=== PATIENT | female | born 1955 | race Caucasian/White ===

== ENCOUNTER 2020-07-17 15:44 | Inpatient (IN) | payer BC, SELFPAY ==
--- NOTE | ~2020-07-17 | MR_ITS ---
EXAMINATION: MR MRCP wo/w con/w 3D wo ind DATE: 07/18/2020 16:07 INDICATION: Chronic pancreatitis. Abdominal pain. TECHNIQUE: Magnetic resonance imaging (MRI) of the abdomen was performed without and with 12 mL Multi Lokesh intravenous contrast. Sequences included coronal T2-weighted FS FSE, coronal T2-weighted FSE, a xial T1-weighted LAVA, coronal FS FIESTA, axial dual-echo T1-weighted SPGR, coronal lava-FLEX, sagitt al T2-weighted FSE, axial T2-weighted FSE, and axial DWI. Thick-slab T2-weighted FSE images were obta ined for magnetic resonance cholangiopancreatography (MRCP). Maximum intensity projection 3-D reconst ructions of the volumetric data were created by the technologist. Postcontrast sequences included cor onal LAVA-flex and time course of axial T1-weighted LAVA. COMPARISON: CT abdomen and pelvis the 07/17/2020 FINDINGS: ABDOMEN MRI: The liver is normal. The spleen is absent. The gallbladder is absent. The tail of the pa ncreas is mildly enlarged, consistent with chronic pancreatitis. The adrenal glands are normal. There are cysts in the kidneys measuring up to 14 mm on the right. There are no dilated loops of bowel. Th ere is a supraumbilical ventral hernia containing nonobstructed small bowel. There are no pathologica lly enlarged lymph nodes. There is no free intraperitoneal fluid. ABDOMEN MRCP: The common duct is normal and measures 6 mm. No choledocholithiasis. The pancreatic dannie t is normal in caliber. IMPRESSION: 1. Mild enlargement of the tail of the pancreas, consistent with chronic pancreatitis. 2. Supraumbilical ventral hernia containing nonobstructed small bowel. Reviewed, dictated and finalized at location A. IMPRESSION: 1. Mild enlargement of the tail of the pancreas, consistent with chronic pancre atitis. 2. Supraumbilical ventral hernia containing nonobstructed small bowel.
--- NOTE | ~2020-07-17 | CT_ITS ---
EXAMINATION: CT abdomen pelvis wo con DATE: 07/17/2020 18:34 INDICATION: Left flank pain. TECHNIQUE: Computed tomography (CT) of the abdomen and pelvis was performed without intravenous contr ast. Automated exposure control and iterative reconstruction technique were employed. The dose-length product was 179.87 mGy-cm. COMPARISON: None. FINDINGS: The visualized portions of the lung bases demonstrate mild atelectasis. Calcified left lung nodules are consistent with old granulomatous disease. No pleural effusion. The heart size is normal . No pericardial effusion. The liver is normal. The spleen is absent. There are changes of cholecyste ctomy. There is fat stranding around the pancreas. The adrenal glands are normal.. There is mild atro phy of the kidneys. There are 1 mm and 4 mm stones in right kidney. There is a 1.5 cm cyst in right k idney. There is a 1 mm stone in left kidney. The bladder is distended. There are no dilated loops of bowel. The appendix is normal. There is a supraumbilical ventral hernia containing nonobstructed smal l bowel. There are no pathologically enlarged lymph nodes. There is no free intraperitoneal fluid. Th ere is severe thoracic and lumbar spondylosis. IMPRESSION: 1. Supraumbilical ventral hernia containing nonobstructed small bowel. 2. Bilateral nonobstructing kidney stones. 3. Fat stranding around the pancreas suspicious for acute or chronic pancreatitis. Correlate with lip ase. Reviewed, dictated and finalized at location A. IMPRESSION: 1. Supraumbilical ventral hernia containing nonobstructed small bowel. 2. Bilateral nonobstructing kidney stones. 3. Fat stranding around the pancreas suspicious for acute or chronic pancreatit is. Correlate with lipase.
[2020-07-17 16:02] VITALS: BP 147/83; PULSE 80; RESP 16; TEMP 36.1; O2SAT 97
[2020-07-17 16:18] LABS: Basophils Absolute Auto 0.1 K/mm3 (0.0-0.1); Basophils Percent Auto 0.8 % (0.2-1.2); Eosinophils Absolute Auto 0.2 K/mm3 (0-0.3); Eosinophils Percent Auto 2.5 % (0-4.4); Hematocrit 36.8 % (37.0-47.0); Hemoglobin 12.2 g/dL (12.0-15.0); Immature Granulocyte Absolute 0.02 K/mm3 (0.00-0.031); Immature Granulocyte Percent A 0.3 % (0-0.5); Lymphocytes Absolute Auto 1.95 K/mm3 (0.9-3.2); Lymphocytes Percent Auto 26.6 % (18.3-44.2); Mean Corpuscular HGB Conc 33.2 g/dl (32-36); Mean Corpuscular Hemoglobin 32.5 pg (26-34); Mean Corpuscular Volume 98.1 fl (80-100); Mean Platelet Volume 10.5 fl (7.4-10.4); Monocytes Absolute Auto 1.1 K/mm3 (0.1-0.6); Monocytes Percent Auto 14.6 % (2.6-8.5); Neutrophils Absolute Auto 4.1 K/mm3 (1.3-6.7); Neutrophils Percent Auto 55.2 % (45.5-73.1); Platelet Count Result 301 k/mm3 (150-375); Red Blood Count 3.75 M/mm3 (4.2-5.4); Red Cell Distribution Width 15.9 % (11.5-14.5); White Blood Count 7.3 K/mm3 (4.5-10.0)
[2020-07-17 16:20] LABS: Add Urine Microscopic? NO; Appearance Urine Clear (Clear); Bilirubin Urine Negative (Negative); Blood Urine Negative (Negative); Color Urine Straw (Yellow); Glucose Urine UA Negative (Negative); Ketones Urine Negative (Negative); Leukocyte Esterase Ur Negative LEU/UL (Negative); Nitrate Urine Negative (Negative); Protein Urine Negative (Negative); Specific Grav Ur 1.008 (1.001-1.035); Urobilinogen Urine Negative mg/dL (<2.0)
[2020-07-17 16:30] LABS: Anion Gap 5 mmol/L (8-16); Blood Urea Nitrogen 15 mg/dL (7-17); Carbon Dioxide 26 mmol/L (22-30); Chloride 105 mmol/L (98-107); Estimated CRCL calculation 39 ml/min; Estimated Glomerular Filt Rate 56; Glucose 90 mg/dL (65-105); Potassium 4.2 mmol/L (3.4-5.0); Sodium 136 mmol/L (137-145)
[2020-07-17 16:36] LABS: Platelet Estimate Adequate (Adequate)
[2020-07-17 16:37] LABS: Stomatocytes 2+ (NORMAL); Tear Drop Cells 1+ (NORMAL)
--- NOTE | 2020-07-17 18:19 | ED.BACK ---
HPI - Back Pain/Injury General Chief Complaint: Back Pain/Injury Stated Complaint: DIFF WITH URINATION L FLANK PAIN Time Seen by Provider: 07/17/20 17:59 Source: patient Mode of arrival: ambulatory Limitations: no limitations History of Present Illness HPI Narrative: This is a 65-year-old female that presents to the emergency department for left flank pain since last night. Associated with dysuria and hematuria. Also reports left upper/mid abdominal pain. Denies fever, or vomiting. Related Data Allergies Allergy/AdvReac Type Severity Reaction Status Date / Time acetaminophen [From Liscomb] Allergy Nausea and Verified 07/17/20 18:01 Vomiting banana Allergy Rash Verified 07/17/20 18:01 bee venom protein (honey bee) Allergy Anaphylaxis Verified 07/17/20 18:01 cat dander Allergy Rash Verified 07/17/20 18:01 cefdinir Allergy Rash Verified 07/17/20 18:01 codeine Allergy Anaphylaxis Verified 07/17/20 18:01 dog dander Allergy Rash Verified 07/17/20 18:01 gluten Allergy Diarrhea Verified 07/17/20 18:01 hydrocodone Allergy Nausea Verified 07/17/20 18:01 hydromorphone [From Dilaudid] Allergy Difficulty Verified 07/17/20 18:01 Breathing Iodine and Iodide Containing Allergy Hives Verified 07/17/20 18:01 Produc lactose Allergy Diarrhea Verified 07/17/20 18:01 Latex, Natural Rubber Allergy Hives Verified 07/17/20 18:01 levofloxacin Allergy Rash Verified 07/17/20 18:01 pineapple Allergy Rash Verified 07/17/20 18:01 shellfish derived Allergy Anaphylaxis Verified 07/17/20 18:01 strawberry Allergy Rash Verified 07/17/20 18:01 Sulfa (Sulfonamide Allergy Hives Verified 07/17/20 18:01 Antibiotics) sulfanilamide Allergy Rash Verified 07/17/20 18:01 aspirin AdvReac Other Verified 07/17/20 18:01 Review of Systems Review of Systems: Narrative: CONSTITUTIONAL: Denies fever GASTROINTESTINAL: Reports abdominal pain. Denies nausea, vomiting GENITOURINARY: Reports dysuria and hematuria. All systems reviewed & are unremarkable except as noted in HPI and below PMFSH Past Medical History Medical History (Updated 07/17/20 @ 21:19 by Tierra Schultz PA-C) History of asthma History of gastroesophageal reflux (GERD) History of migraine headaches Exam Narrative: Exam Narrative: GENERAL: Well-appearing, well-nourished, and in mild acute distress due to pain. HEAD: Normocephalic, atraumatic. EYES: EOMI. CHEST: Clear to auscultation. No respiratory distress. No wheezes rales or rhonchi HEART: Regular rate and rhythm. No murmur heard. Normal peripheral pulses. ABDOMEN: Soft, nondistended, normal active bowel sounds. Tender to palpation about the left side mid/upper abdomen, without guarding. Left sided CVA tenderness EXTREMITIES: Normal range of motion. No edema. SKIN: Warm, dry, no rash. NEURO: No focal deficits. Alert and oriented x3. PSYCH: Normal mood and affect Course Consultations Consultation #1: Spoke with hospitalist about patient and work-up who accepts admission Date: 07/17/20 Time: 21:22 Vital Signs Vital signs: Vital Signs Temperature 97 F L 07/17/20 16:02 Pulse Rate 80 07/17/20 16:02 Respiratory Rate 16 07/17/20 16:02 Blood Pressure 147/83 H 07/17/20 16:02 Pulse Oximetry 97 07/17/20 16:02 Temperature 97 F L 07/17/20 16:02 Pulse Rate 72 07/17/20 19:03 Respiratory Rate 16 07/17/20 19:03 Blood Pressure 148/88 H 07/17/20 19:03 Pulse Oximetry 98 07/17/20 19:03 MDM - Back Pain/Injury MDM Narrative Medical decision making narrative: This is a 65 year old female that presents to the ER for back pain and abdominal pain. She is afebrile and nontoxic-appearing. CBC is without leukocytosis. Metabolic panel significant for mild transaminitis. Lipase is normal. UA is normal. CT scan of the abdomen and pelvis shows a ventral hernia containing nonobstructed small bowel. Shows nonobstructing kidney stones. Also shows fat stranding around the pancreas suspicious for acute or ch
[2020-07-17] MEDS: MORPHINE SULFATE (*CRX) 4 MG/ML INJ IV PUSH ×2 (18:26→21:34)
[2020-07-17] MEDS: ONDANSETRON INJ 4 MG/2 ML VIAL IV PUSH (18:27)
[2020-07-17] MEDS: SODIUM CHLORIDE 0.9% IV 1,000 ML 999 ML IV CONT ×2 (18:28→21:34)
[2020-07-17 19:03] VITALS: BP 148/88; PULSE 72; RESP 16; O2SAT 98
[2020-07-17 19:14] LABS: Alanine Aminotransferase 39 U/L (4-35); Albumin Level 4.1 g/dL (3.5-5.1); Alkaline Phosphatase 116 U/L (38-126); Aspartate Amino Transferase 56 U/L (14-36); Bilirubin,Total 0.5 mg/dL (0.2-1.3); Lipase 96 U/L (23-300)
[2020-07-17] MEDS: diphenhydrAMINE HCl INJ 50 MG/ML VIAL 25 MG IV PUSH (19:14)
[2020-07-17] MEDS: FAMOTIDINE 20 MG/2 ML VIAL IV PUSH (19:14)
[2020-07-17 22:35] VITALS: BP 149/77; PULSE 78; RESP 18; TEMP 36.2; O2SAT 97; BMI 25.4
[2020-07-17] MEDS: SODIUM CHLORIDE 0.9% IV 1,000 ML 125 ML IV CONT (22:48)
[2020-07-17] MEDS: MORPHINE SULFATE (*CRX) 2 MG/ML INJ IV PUSH (23:27)
--- NOTE | 2020-07-17 23:35 | ADMGEN ---
This patient, Razia Trinh, was admitted to [facility] Surg Room 312-01. Patient/family oriented to hospital policies and general routines including ID bracelet, bed and alarms, visiting hours, pain management, procedures, bathroom and other care routines, personal items, smoking policy, room service/diet, and visiting hours. Information on how to activate the Rapid Response Team has been discussed. Patient/Family are encouraged to report perceived risks to care and to ask questions if they do not understand what they are told or what they should do.
--- NOTE | 2020-07-17 23:40 | PM.IMHP ---
H&P: HPI History of Present Illness Date/Time: 07/17/20 23:40 this is a 65-year-old female patient has a history of chronic pancreatitis. She has also had kidney stones in the past and had lithotripsy. The patient has multiple drug allergies. Patient's urine was a clear. CT the abdomen pelvis was read as supraumbilical ventral hernia containing nonobstructive small bowel. Bilateral nonobstructing kidney stones. Fat stranding around the pancreas suspicious for acute or chronic pancreatitis. Correlate with lipase. The patient was medicated with morphine in the emergency room. The patient was given Zofran. Patient is being admitted to observation status on the date of service of 07/18/2019 Chief Complaint: Abdominal pain Review of Systems Review of Systems: All systems reviewed & are unremarkable except as noted in HPI and below Constitutional: Constitutional: Reports as per HPI and Reports no additional constitutional complaints Eyes: Eyes: Reports as per HPI and Reports no additional eye complaints ENT: Reports system reviewed and no additional complaints, except as documented and Reports Normal hearing present Cardiovascular: Cardiovascular: Reports no additional cardiovascular complaints Respiratory: Respiratory: Reports no additional respiratory complaints and Reports no additional respiratory complaints Gastrointestinal: Gastrointestinal: Reports as per HPI and Reports no additional gastrointestinal complaints Musculoskeletal: Musculoskeletal: Reports no additional musculoskeletal complaints Integumentary/Breasts: Skin/Breast: Reports system reviewed and no additional complaints, except as docu and Reports as per HPI Neurologic: Reports system reviewed and no additional complaints, except as documented, Reports as per HPI and Reports Normal hearing present Psychiatric: Psychiatric: Reports no additional psychiatric complaints and Reports as per HPI Endocrine: Endocrine: Reports no additional endocrine complaints Hematologic/Lymphatic: Hematologic/Lymphatic: Reports no additional hematologic/lymphatic complaints Allergic/Immunologic: Allergic/Immunologic: Reports no additional allergic/immunologic complaints [facility] [place] Past Medical History Medical History (Updated 07/17/20 @ 23:55 by Mary Aparicio NP) Anxiety History of asthma History of gastroesophageal reflux (GERD) History of migraine headaches Kidney stone Neuropathy Surgical History Surgical History (Updated 07/17/20 @ 23:55 by Mary Aparicio NP) H/O hysterectomy with oophorectomy H/O splenectomy History of bladder surgery History of ERCP Hx of elbow surgery Hx of lithotripsy Total knee replacement status Bilaterally Family History Family History Mother Diabetes mellitus Cancer Hypertension Colon cancer Ulcerative colitis Migraines Cerebrovascular accident Father Diabetes mellitus Hypertension Sibling Diabetes mellitus Hypertension Sibling Diabetes mellitus Hypertension Lung disease Social History Social History (Updated 07/17/20 @ 23:57 by Mary Aparicio NP) Social History: The patient is and her is in a wheelchair. 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 The patient has full code. 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 She denies any alcohol, marijuana or illicit drugs. She states she is a lifelong nonsmoker Smoking status: Never smoker Second hand tobacco smoke exposure: Yes Alcohol intake: never Substance use: never Substance use type: does not use Spiritual care concerns: No Meds Home Medications and Allergies Home Medications Medication Instructions Recorded Confirmed Type alcaftadine 1 drp EACH EYE QID PRN 07/17/20 07/17/20 History beclomethasone dipropionate [Qvar 2 inh INHALATION BID 07/17/20 07/17/20 History RediHaler] biot
[2020-07-18] MEDS: diphenhydrAMINE HCl INJ 50 MG/ML VIAL 25 MG IV PUSH (00:45)
[2020-07-18] MEDS: MORPHINE SULFATE (*CRX) 2 MG/ML INJ IV PUSH ×3 (04:46→20:45)
[2020-07-18 05:39] VITALS: BP 134/67; PULSE 77; RESP 16; TEMP 36.5; O2SAT 93
[2020-07-18 05:47] LABS: Basophils Absolute Auto 0.1 K/mm3 (0.0-0.1); Basophils Percent Auto 0.9 % (0.2-1.2); Eosinophils Absolute Auto 0.3 K/mm3 (0-0.3); Eosinophils Percent Auto 4.1 % (0-4.4); Hematocrit 31.5 % (37.0-47.0); Hemoglobin 10.3 g/dL (12.0-15.0); Immature Granulocyte Absolute 0.01 K/mm3 (0.00-0.031); Immature Granulocyte Percent A 0.1 % (0-0.5); Lymphocytes Absolute Auto 2.72 K/mm3 (0.9-3.2); Lymphocytes Percent Auto 34.6 % (18.3-44.2); Mean Corpuscular HGB Conc 32.7 g/dl (32-36); Mean Corpuscular Hemoglobin 31.9 pg (26-34); Mean Corpuscular Volume 97.5 fl (80-100); Mean Platelet Volume 10.6 fl (7.4-10.4); Monocytes Absolute Auto 1.4 K/mm3 (0.1-0.6); Monocytes Percent Auto 18.1 % (2.6-8.5); Neutrophils Absolute Auto 3.3 K/mm3 (1.3-6.7); Neutrophils Percent Auto 42.2 % (45.5-73.1); Platelet Count Result 288 k/mm3 (150-375); Red Blood Count 3.23 M/mm3 (4.2-5.4); Red Cell Distribution Width 15.9 % (11.5-14.5); White Blood Count 7.9 K/mm3 (4.5-10.0)
[2020-07-18 06:01] LABS: Lactic Acid Reflex 0.6 mmol/L (0.7-2.1)
[2020-07-18 06:05] LABS: Alanine Aminotransferase 29 U/L (4-35); Albumin Level 3.4 g/dL (3.5-5.1); Alkaline Phosphatase 88 U/L (38-126); Anion Gap 2 mmol/L (8-16); Aspartate Amino Transferase 36 U/L (14-36); Bilirubin,Total 0.5 mg/dL (0.2-1.3); Blood Urea Nitrogen 12 mg/dL (7-17); Calcium 8.2 mg/dL (8.4-10.2); Carbon Dioxide 28 mmol/L (22-30); Chloride 110 mmol/L (98-107); Estimated CRCL calculation 43 ml/min; Estimated Glomerular Filt Rate > 60; Glucose 74 mg/dL (65-105); Lactate Dehydrogenase 489 U/L (313-618); Lipase 71 U/L (23-300); Magnesium 1.8 mg/dL (1.6-2.3); Sodium 140 mmol/L (137-145)
[2020-07-18 06:22] LABS: Potassium 4.1 mmol/L (3.4-5.0)
[2020-07-18] MEDS: SODIUM CHLORIDE 0.9% IV 1,000 ML 125 ML IV CONT ×2 (07:03→16:56)
[2020-07-18] MEDS: TIMOLOL MALEATE 0.25% OP SOLN 5 ML BOTTLE 1 DROP LEFT EYE (07:54)
[2020-07-18] MEDS: BRIMONIDINE TARTRATE 0.1% 5 ML OPHTH DROPS 1 DROP EACH EYE (07:54)
[2020-07-18] MEDS: LOTEPREDNOL ETABONATE 0.5% OPH 5 ML BOTTLE 1 DROP EACH EYE ×2 (07:55→16:59)
--- NOTE | 2020-07-18 08:52 | WPDURCON ---
Assessment and Plan Assessment and plan (1) Kidney stone: Code(s): N20.0 - Calculus of kidney Status: Chronic Assessment and Plan: Bilateral non obstructive, no contributing to flank/abdominal pain. UA is normal as well, no hematuria present. No further evaluation needed at this time, will follow stones yearly with imaging. (2) Acute on chronic pancreatitis: Code(s): K85.90 - Acute pancreatitis without necrosis or infection, unspecified; K86.1 - Other chronic pancreatitis Status: Acute Urology Consult Note HPI Date Seen: 07/18/20 Requesting Physician: Autumn Goldstein PA-C Primary Care Provider: Braydon Mcneil, MD Consult Narrative Narrative: Razia Trinh is a 65 year old female who is known to our practice and presented to the office yesterday for an appt. 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 She has a history of kidney stones and pancreatitis. She felt that she was passing a kidney stone as the symptoms were similar. She initially report dysuria and hematuria, however he UA in the office was normal. She was crying and reporting pain 15/10 in the office, therefore we sent her to the ER for immediate evaluation. In the ER she was found to have a stable WBC of 7.9, creatinine of 0.90, negative UA, but CT scan showing fat stranding around her pancreas as well as bilateral non obstructive stones. Stones measure 1mm in the left kidney and 1mm and 4mm in the right kidney. She was febrile and vitals were stable. She was diagnosed with pancreatitis and was admitted for pain control and observation of symptoms. She was made NPO. She states her symptoms are better with Morphine but the pain quickly returns after 1-2 hours of Morphine being given. Review of Systems Cardiovascular: Cardiovascular: Denies chest pain Respiratory: Respiratory: Reports no additional respiratory complaints Gastrointestinal: Gastrointestinal: Reports abdominal pain, Reports nausea and Denies vomiting Genitourinary: Genitourinary: Reports hematuria, Reports dysuria, Denies pelvic pain, Denies flank pain, Denies urinary incontinence, Denies urinary hesitancy and Denies urinary urgency [facility] Past Medical History Medical History Anxiety History of asthma History of gastroesophageal reflux (GERD) History of migraine headaches Kidney stone Neuropathy Surgical History Surgical History H/O hysterectomy with oophorectomy H/O splenectomy History of bladder surgery History of ERCP Hx of elbow surgery Hx of lithotripsy Total knee replacement status Bilaterally Family History Family History Mother Diabetes mellitus Cancer Hypertension Colon cancer Ulcerative colitis Migraines Cerebrovascular accident Father Diabetes mellitus Hypertension Sibling Diabetes mellitus Hypertension Sibling Diabetes mellitus Hypertension Lung disease Social History Social History Social History: The patient is and her is in a wheelchair. 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 The patient has full code. 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 She denies any alcohol, marijuana or illicit drugs. She states she is a lifelong nonsmoker Smoking status: Never smoker Second hand tobacco smoke exposure: Yes Alcohol intake: never Substance use: never Substance use type: does not use Spiritual care concerns: No Meds Home Medications and Allergies Home Medications Medication Instructions Recorded Confirmed Type alcaftadine 1 drp EACH EYE QID PRN 07/17/20 07/17/20 History beclomethasone dipropionate [Qvar 2 inh INHALATION BID 07/17/20
--- NOTE | 2020-07-18 12:28 | PM.IMPN ---
Progress Note: A&P Assessment and Plan (1) Acute on chronic pancreatitis: Code(s): K85.90 - Acute pancreatitis without necrosis or infection, unspecified; K86.1 - Other chronic pancreatitis Status: Acute Assessment and Plan: Pt has a long hx of idiopathic chronic pancreatitis in which she has seen multiple doctors at [facility] and has had part of her pancreas and spleen removed -she said this pain is similar to her pain she had in 2019 when she continued to have chronic pancreatitis -she had an MRCP a few weeks ago although she insists that this pain just started on Friday -for now, will continue NPO and obtain records -since the pain is new, will order MRCP -she does not drink alcohol nor does she have a gallbladder (2) Kidney stone: Code(s): N20.0 - Calculus of kidney Status: Chronic Assessment and Plan: Kidney stones are nonobstructing, follow-up with urology in the office. She has a 1.5 cyst on her right kidney that will need to be followed as well. (3) Anxiety: Code(s): F41.9 - Anxiety disorder, unspecified Status: Chronic Assessment and Plan: Continue PRN anxiety (4) Neuropathy: Code(s): G62.9 - Polyneuropathy, unspecified Status: Chronic Assessment and Plan: Chronic (5) Rheumatoid arthritis: Code(s): M06.9 - Rheumatoid arthritis, unspecified Status: Acute Assessment and Plan: Chronic, no acute symptoms -Pt typically takes MTX on wednesdays, continue per usual outpt since there is no signs of infx -Continue golimumab (next dose July 27) -Continue hydroxycloroquine orally BID Time Spent With Patient Time with patient: 25 - 35 minutes Subjective Date/time seen: 07/18/20 12:28 Interval history: Pt is a 64-year-old female here for abdominal pain. Patient states that this is really acute on chronic abdominal pain. She says a few years ago she had chronic pancreatitis and that part of her pancreas and spleen removed. Since then she has been doing relatively okay but since Friday she has been having pain consistent with the pain she previously had. She has had nausea and vomiting but no diarrhea. She had spaghetti the night her pain started. She had a MRCP a couple weeks ago and she sees Dr. Guillen at [facility]. No CP, SOB fevers or chills. She does not drink alcohol and has had her gallbladder removed. Review of Systems Review of Systems: All systems reviewed & are unremarkable except as noted in HPI and below Exam Narrative: Exam Narrative: General: Well developed well nourished patient in NAD HEENT: normocephalic Neck: supple Neuro: Alert and oriented x4 CV:RRR Resp:CTA Abd: Soft, non distended. Pain to palpation to the epigastric and LUQ. well healed surgicial scars. Positive bowel sounds Extremities: No swelling, erythema, or pain to palpation. Objective Data Vital Signs Vital Signs: Vital Signs - 24 hr 07/17/20 16:02 07/17/20 19:03 07/17/20 22:35 Temperature 97 F L 97.1 F L Pulse Rate 80 72 78 Respiratory Rate 16 16 18 Blood Pressure 147/83 H 148/88 H 149/77 H Pulse Oximetry 97 98 97 07/18/20 05:39 Temperature 97.7 F Pulse Rate 77 Respiratory Rate 16 Blood Pressure 134/67 Pulse Oximetry 93 Intake/Output Intake/Output: Intake & Output 07/15/20 07/16/20 07/17/20 07/18/20 23:59 23:59 23:59 23:59 Intake Total 2100 1100 Output Total 1300 Balance 2100 -200 Meds/Results Medications: Active Medications Generic Name Dose Route Start Last Admin Trade Name Freq PRN Reason Stop Dose Admin Beclomethasone Dipropionate 2 puff 07/18/20 08:00 07/18/20 11:36 Beclomethasone Dip 80 Mcg 7.3 Gm Inhaler (*Sp) INHALATION 2 puff Q12HRT MARIA VICTORIA Administration Brimonidine Tartrate 1 drop 07/18/20 09:00 07/18/20 07:54 Brimonidine Tartrate 0.1% 5 Ml Ophth Drops EACH EYE 1 drop DAILY MARIA VICTORIA Administration Budesonide/Formoterol Fumar
[2020-07-18 13:51] VITALS: BP 144/73; PULSE 65; RESP 16; TEMP 36.4; O2SAT 99
--- NOTE | 2020-07-18 14:18 | PHAR ---
[facility] [id number] unit Capsule HAS BEEN VERIFIED.
[2020-07-18] MEDS: CHOLESTYRAMINE LIGHT 4 GM POWD.PACK PO (16:57)
[2020-07-18] MEDS: HYDROXYCHLOROQUINE SULFATE 200 MG TABLET PO (16:58)
[2020-07-18] MEDS: GABAPENTIN 300 MG CAPSULE PO (16:58)
[2020-07-18] MEDS: DIPHENOXYLATE/ATROPINE (*CRX) 2.5 MG TABLET 2 TABLET PO (19:04)
[2020-07-18] MEDS: MONTELUKAST SODIUM 10 MG TABLET PO (20:27)
[2020-07-18] MEDS: LATANOPROST 0.005% OP SOLN 2.5 ML BTL 1 DROP EACH EYE (20:28)
[2020-07-18] MEDS: NORTRIPTYLINE HCL 10 MG CAPSULE 20 MG PO (20:46)
[2020-07-18 22:00] VITALS: BP 149/55; PULSE 72; RESP 16; TEMP 36.9; O2SAT 97
[2020-07-19] MEDS: MORPHINE SULFATE (*CRX) 2 MG/ML INJ IV PUSH ×2 (04:25→09:56)
[2020-07-19] MEDS: SODIUM CHLORIDE 0.9% IV 1,000 ML 125 ML IV CONT ×2 (04:29→18:25)
[2020-07-19 06:00] VITALS: BP 131/60; PULSE 71; RESP 16; TEMP 36.9; O2SAT 96
[2020-07-19 06:48] LABS: Hematocrit 32.1 % (37.0-47.0); Hemoglobin 10.5 g/dL (12.0-15.0); Mean Corpuscular HGB Conc 32.7 g/dl (32-36); Mean Corpuscular Hemoglobin 32.3 pg (26-34); Mean Corpuscular Volume 98.8 fl (80-100); Mean Platelet Volume 11.1 fl (7.4-10.4); Platelet Count Result 282 k/mm3 (150-375); Red Blood Count 3.25 M/mm3 (4.2-5.4); Red Cell Distribution Width 15.9 % (11.5-14.5); White Blood Count 6.1 K/mm3 (4.5-10.0)
[2020-07-19 07:02] LABS: Alanine Aminotransferase 22 U/L (4-35); Albumin Level 3.4 g/dL (3.5-5.1); Alkaline Phosphatase 84 U/L (38-126); Anion Gap 4 mmol/L (8-16); Aspartate Amino Transferase 27 U/L (14-36); Bilirubin,Total 0.5 mg/dL (0.2-1.3); Blood Urea Nitrogen 9 mg/dL (7-17); Calcium 8.3 mg/dL (8.4-10.2); Carbon Dioxide 25 mmol/L (22-30); Chloride 110 mmol/L (98-107); Estimated CRCL calculation 55 ml/min; Estimated Glomerular Filt Rate > 60; Glucose 77 mg/dL (65-105); Lipase 63 U/L (23-300); Potassium 3.8 mmol/L (3.4-5.0); Sodium 139 mmol/L (137-145)
[2020-07-19 09:07] LABS: Partial Thromboplastin Time 29.9 SECONDS (22.3-36.8)
[2020-07-19] MEDS: LOTEPREDNOL ETABONATE 0.5% OPH 5 ML BOTTLE 1 DROP EACH EYE ×2 (10:09→16:44)
[2020-07-19] MEDS: HYOSCYAMINE SULFATE 0.125 MG TABLET PO (10:13)
[2020-07-19] MEDS: GABAPENTIN 300 MG CAPSULE PO ×3 (10:13→16:45)
[2020-07-19 10:14] VITALS: PULSE 76
[2020-07-19] MEDS: NEBIVOLOL HCL 5 MG TABLET 10 MG PO (10:14)
[2020-07-19] MEDS: HYDROXYCHLOROQUINE SULFATE 200 MG TABLET PO ×2 (10:17→16:45)
[2020-07-19] MEDS: VENLAFAXINE HCL XR 75 MG CAP.ER.24H PO (10:17)
[2020-07-19] MEDS: TIMOLOL MALEATE 0.25% OP SOLN 5 ML BOTTLE 1 DROP LEFT EYE (10:32)
[2020-07-19] MEDS: BRIMONIDINE TARTRATE 0.1% 5 ML OPHTH DROPS 1 DROP EACH EYE (10:32)
--- NOTE | 2020-07-19 11:39 | PM.IMPN ---
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 Will obtain those records -patient's pain medication is not resolving her pain, I will increase the dose and schedule IV Tylenol -new MRCP shows pancreatitis -she does not drink alcohol nor does she have a gallbladder -I have contacted her GI office at [phone] and left them a message to call me back to discuss plan of care -I am going to consult GI -although I do not suspect acute abdomen, I will draw a lactic acid. She does not appear to have an incarcerated hernia (2) Kidney stone: Code(s): N20.0 - Calculus of kidney Status: Chronic Assessment and Plan: Kidney stones are nonobstructing, follow-up with urology in the office. She has a 1.5 cyst on her right kidney that will need to be followed as well. (3) Anxiety: Code(s): F41.9 - Anxiety disorder, unspecified Status: Chronic Assessment and Plan: Continue PRN anxiety (4) Neuropathy: Code(s): G62.9 - Polyneuropathy, unspecified Status: Chronic Assessment and Plan: Chronic (5) Rheumatoid arthritis: Code(s): M06.9 - Rheumatoid arthritis, unspecified Status: Acute Assessment and Plan: Chronic, no acute symptoms -Pt typically takes MTX on wednesdays, continue per usual outpt since there is no signs of infx -Continue golimumab (next dose July 27) -Continue hydroxycloroquine orally BID Subjective Date/time seen: 07/19/20 11:39 Interval history: Pt is a 64-year-old female here for abdominal pain. Patient was seen today and states her pain is a 6/10 and is in the epigastric area. She states that she has constant pain but then will have occasional jabs of severe pain that radiates through her back. She is not have any nausea or vomiting but isn't taking clear liquids well but thinks they just look bad. She does not have any chest pain or shortness of breath. We discussed her history of pancreatitis and the plan of care. Patient states the pain medication is not taking care of her pain and she would like an increased dose. Exam Narrative: Exam Narrative: General: Well developed well nourished patient in NAD but tearful at times HEENT: normocephalic Neck: supple Neuro: Alert and oriented x4 CV:RRR Resp:CTA Abd: Soft, non distended. Pain to palpation to the epigastric and LUQ with light and deep palpation. well healed surgical scars. Positive bowel sounds Extremities: No swelling, erythema, or pain to palpation. Objective Data Vital Signs Vital Signs: Vital Signs - 24 hr 07/18/20 13:51 07/18/20 22:00 07/19/20 06:00 Temperature 97.5 F L 98.4 F 98.5 F Pulse Rate 65 72 71 Respiratory Rate 16 16 16 Blood Pressure 144/73 H 149/55 H 131/60 Pulse Oximetry 99 97 96 07/19/20 10:14 Temperature Pulse Rate 76 Respiratory Rate Blood Pressure Pulse Oximetry Intake/Output Intake/Output: Intake & Output 07/16/20 07/17/20 07/18/20 07/19/20 23:59 23:59 23:59 23:59 Intake Total 2100 2890 1390 Output Total 1925 800 Balance 2100 965 590 Meds/Results Medications: Active Medications Generic Name Dose Route Start Last Admin Trade Name Freq PRN Reason Stop Dose Admin Beclomethasone Dipropionate 2 puff 07/18/20 08:00 07/18/20 11:36 Beclomethasone Dip 80 Mcg 7.3 Gm Inhaler (*Sp) INHALATION 2 puff Q12HRT MARIA VICTORIA Administration Brimonidi
[2020-07-19 12:25] LABS: Lactic Acid Reflex 1.6 mmol/L (0.7-2.1)
[2020-07-19] MEDS: CHOLESTYRAMINE LIGHT 4 GM POWD.PACK PO ×2 (12:50→16:44)
[2020-07-19 14:00] VITALS: BP 143/78; PULSE 69; RESP 20; TEMP 36.6; O2SAT 98
[2020-07-19] MEDS: MORPHINE SULFATE (*CRX) 2 MG/ML INJ 4 MG IV PUSH ×3 (16:00→22:53)
--- NOTE | 2020-07-19 17:36 | WPDGICN ---
Assessment and Plan Assessment and plan (1) Acute on chronic pancreatitis: Code(s): K85.90 - Acute pancreatitis without necrosis or infection, unspecified; K86.1 - Other chronic pancreatitis Status: Acute Assessment and Plan: she had multiple admissions and even had partial pancreatectomy, she is followed with GI doctor in [facility] continue with supportive care, pain management and fluids normal lipase but still could be exacerbation in chronic cases start liquid diet when less pain or nausea she says that normally will stay in the hospital 3-5 days (2) Upper abdominal pain: Code(s): R10.10 - Upper abdominal pain, unspecified Status: Acute Assessment and Plan: probably from exacerbation of pancreatitis (3) Nausea and vomiting in adult: Code(s): R11.2 - Nausea with vomiting, unspecified Status: Acute Assessment and Plan: antiemetics prn (4) Kidney stone: Code(s): N20.0 - Calculus of kidney Status: Chronic (5) Chronic anemia: Code(s): D64.9 - Anemia, unspecified Status: Acute Assessment and Plan: stable GI Consult Note Consult date/time: 07/19/20 17:36 Reason for consult: chronic pancreatitis HPI: Razia Trinh is a 65 year old female with history of chronic pancreatitis managed by Dr Holden at [facility] with multiple episodes and hospitalizations, remote cholecystectomy. Idiopathic pancreatitis per patient, she had partial pancreatectomy with splenectomy late 2019 and since then has not been admitted until this time. She had new onset of nausea, vomiting with upper abdominal pain that was moderate to severe and came to ER. CT the abdomen pelvis reviewed and showed supraumbilical ventral hernia containing nonobstructive small bowel, bilateral nonobstructing kidney stones, fat stranding around the pancreas suspicious for acute or chronic pancreatitis. Liver enzymes normal and also lipase. Review of Systems Constitutional: Constitutional: Denies chills Eyes: Eyes: Denies blurry vision ENT: Reports Normal hearing present Cardiovascular: Cardiovascular: Denies chest pain Respiratory: Respiratory: Denies dyspnea Gastrointestinal: Gastrointestinal: Reports abdominal pain, Reports nausea and Reports vomiting Genitourinary: Genitourinary: Denies hematuria and Reports flank pain Musculoskeletal: Musculoskeletal: Denies neck pain Integumentary/Breasts: Skin/Breast: Denies dry skin Neurologic: Denies headache(s) Psychiatric: Psychiatric: Reports no additional psychiatric complaints PMFSH Past Medical History Medical History (Updated 07/19/20 @ 17:40 by Slava Pelaez MD) Anxiety Chronic anemia History of asthma History of gastroesophageal reflux (GERD) History of migraine headaches Kidney stone Nausea and vomiting in adult Neuropathy Rheumatoid arthritis Upper abdominal pain Surgical History Surgical History H/O hysterectomy with oophorectomy H/O splenectomy History of bladder surgery History of ERCP Hx of elbow surgery Hx of lithotripsy Total knee replacement status Bilaterally Family History Family History Mother Diabetes mellitus Cancer Hypertension Colon cancer Ulcerative colitis Migraines Cerebrovascular accident Father Diabetes mellitus Hypertension Sibling Diabetes mellitus Hypertension Sibling Diabetes mellitus Hypertension Lung disease Social History Social History Social History: The patient is and her is in a wheelchair. She has 1 adopted daughter.the and the adopted daughter are the durable power senior attorney for healthcare. The patient has full code. 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 She denies any alcohol, marijuana or illicit drugs. She states she is a lifelong nonsmoker
[2020-07-19 20:00] VITALS: PULSE 68; RESP 18; O2SAT 95
[2020-07-19] MEDS: NORTRIPTYLINE HCL 10 MG CAPSULE 20 MG PO (20:08)
[2020-07-19] MEDS: MONTELUKAST SODIUM 10 MG TABLET PO (20:08)
[2020-07-19] MEDS: LATANOPROST 0.005% OP SOLN 2.5 ML BTL 1 DROP EACH EYE (20:10)
[2020-07-19 21:59] VITALS: BP 150/70; PULSE 68; RESP 18; TEMP 37.3; O2SAT 95
[2020-07-20] MEDS: LORazepam INJ (*CRX) 2 MG/ML VIAL 0.5 MG IV PUSH (00:16)
[2020-07-20] MEDS: MORPHINE SULFATE (*CRX) 2 MG/ML INJ 4 MG IV PUSH ×5 (05:19→21:41)
[2020-07-20 05:42] VITALS: BP 122/68; PULSE 70; RESP 18; TEMP 37; O2SAT 93
[2020-07-20 06:52] LABS: Anion Gap 5 mmol/L (8-16); Blood Urea Nitrogen 7 mg/dL (7-17); Calcium 8.7 mg/dL (8.4-10.2); Carbon Dioxide 29 mmol/L (22-30); Chloride 105 mmol/L (98-107); Estimated CRCL calculation 48 ml/min; Estimated Glomerular Filt Rate > 60; Glucose 94 mg/dL (65-105); Lipase 60 U/L (23-300); Potassium 3.9 mmol/L (3.4-5.0); Sodium 139 mmol/L (137-145)
[2020-07-20] MEDS: BRIMONIDINE TARTRATE 0.1% 5 ML OPHTH DROPS 1 DROP EACH EYE (09:09)
[2020-07-20] MEDS: CHOLESTYRAMINE LIGHT 4 GM POWD.PACK PO ×3 (09:09→16:54)
[2020-07-20] MEDS: LOTEPREDNOL ETABONATE 0.5% OPH 5 ML BOTTLE 1 DROP EACH EYE ×2 (09:09→16:55)
[2020-07-20] MEDS: HYOSCYAMINE SULFATE 0.125 MG TABLET PO (09:09)
[2020-07-20 09:10] VITALS: PULSE 70
[2020-07-20] MEDS: GABAPENTIN 300 MG CAPSULE PO ×3 (09:10→16:54)
[2020-07-20] MEDS: HYDROXYCHLOROQUINE SULFATE 200 MG TABLET PO ×2 (09:10→16:54)
[2020-07-20] MEDS: VENLAFAXINE HCL XR 75 MG CAP.ER.24H PO (09:10)
[2020-07-20] MEDS: NEBIVOLOL HCL 5 MG TABLET 10 MG PO (09:10)
[2020-07-20] MEDS: TIMOLOL MALEATE 0.25% OP SOLN 5 ML BOTTLE 1 DROP LEFT EYE (09:11)
[2020-07-20] MEDS: SODIUM CHLORIDE 0.9% IV 1,000 ML 125 ML IV CONT ×2 (11:11→21:36)
--- NOTE | 2020-07-20 13:43 | PM.IMPN ---
Progress Note: A&P Assessment and Plan (1) Acute on chronic pancreatitis: Code(s): K85.90 - Acute pancreatitis without necrosis or infection, unspecified; K86.1 - Other chronic pancreatitis Status: Acute Assessment and Plan: Pt has a long hx of idiopathic chronic pancreatitis in which she has seen multiple doctors at [facility] and has had part of her pancreas and spleen removed. Reports this pain is similar to her pain she had in 2019 when she continued to have chronic pancreatitis. MRCP this stay shows chronic pancreatitis in tail of pancreas. Lipase WNL. GI consulted and appreciate recommendations. She does not drink alcohol and is s/p cholecystectomy; no evidence of retained stone Patient's current pain regimen has improved pain; will continue this today and we discussed tapering tomorrow which she is agreeable to Continue with GI recommendations Will plan to advance diet to FLD this evening; return to CLD if not tolerating Monitor (2) Kidney stone: Code(s): N20.0 - Calculus of kidney Status: Chronic Assessment and Plan: Kidney stones are nonobstructing. Appreciate Urology recommendations follow-up with urology in the office. She has a 1.5 cyst on her right kidney that will need to be followed as well. (3) Anxiety: Code(s): F41.9 - Anxiety disorder, unspecified Status: Chronic Assessment and Plan: Continue PRN medications (4) Neuropathy: Code(s): G62.9 - Polyneuropathy, unspecified Status: Chronic Assessment and Plan: Chronic (5) Rheumatoid arthritis: Code(s): M06.9 - Rheumatoid arthritis, unspecified Status: Acute Assessment and Plan: Chronic, no acute symptoms. Pt typically takes MTX on Wednesdays, continue per usual outpt since there is no signs of infx Continue golimumab (next dose July 27) Continue hydroxychloroquine orally BID Subjective Date/time seen: 07/20/20 13:43 Interval history: Patient is a 65 yo F with history of chronic anemia, idiopathic chronic pancreatitis s/p partial pancreatectomy with splenectomy in late 2019, anxiety, among other comorbid conditions who is seen in follow up for abdominal pain likely related to chronic pancreatitis. Patient states she feels somewhat better today. She is willing to advance diet to FLD, but understands to inform nursing if she has worsening symptoms. She understands she will need to have her pain medication tapered during stay, but is reluctant today as her pain has just now gotten under control. Pain 6/10 today; epigastric radiating to left upper quadrant and mid back. Some nausea, no vomiting. Does feel hot/cold flashes occasionally. Tolerating CLD thus far. BMs yesterday; no blood/melena. No other complaints. Denies dizziness, lightheadedness, cp/palpitations, sob/cough, changes in BMs, dysuria, calf pain/swelling. Review of Systems Review of Systems: All systems reviewed & are unremarkable except as noted in HPI and below Exam Narrative: Exam Narrative: General: Patient resting supine in bed with head raised in no acute distress. HEENT: Normocephalic, EOMI, oral mucosa moist. Cardiovascular: Rate and rhythm are regular. No notable murmur, rub, or gallop. Respiratory: Lungs clear to auscultation anterolateral lung medellin. Non-labored breathing. Abdomen: Soft,ttp epigastric and LUQ regions, non-distended, bowel sounds present. Extremities: Peripheral pulses intact. No edema. NTTP b/l calves Neuro: No focal neurological deficits. Speech is clear. Objective Data Vital Signs Vital Signs: Last Vital Signs Temp 98.6 F 07/20/20 05:42 Pulse 70 07/20/20 09:10 Resp 18 07/20/20 05:42 BP 122/68 07/20/20 05:42 Pulse Ox 93 0
[2020-07-20 14:00] VITALS: BP 155/81; PULSE 61; RESP 20; TEMP 36.9; O2SAT 97
[2020-07-20] MEDS: ENOXAPARIN 40 MG/0.4 ML SYRINGE SUB-Q (17:01)
--- NOTE | 2020-07-20 17:47 | WPDGIPROGNO ---
Progress Note: A&P Assessment and Plan (1) Acute on chronic pancreatitis: Code(s): K85.90 - Acute pancreatitis without necrosis or infection, unspecified; K86.1 - Other chronic pancreatitis Status: Acute Assessment and Plan: pain control, medical mamagement liquid diet for now (2) Upper abdominal pain: Code(s): R10.10 - Upper abdominal pain, unspecified Status: Acute Assessment and Plan: from pancreatitis (3) Nausea and vomiting in adult: Code(s): R11.2 - Nausea with vomiting, unspecified Status: Acute Assessment and Plan: better, antiemetics prn Subjective Date/time seen: 07/20/20 17:47 Interval history: abdominal pain better after increased dose of narcotics, eating only liquid diet, still symptomatic Review of Systems Review of Systems: All systems reviewed & are unremarkable except as noted in HPI and below Exam Const: General: comfortable and no acute distress HENMT: General nose exam: Normal nares present Eyes: General: appearance normal, both eyes and all related structures Neck: Neck: no JVD Resp: Auscultation: clear to auscultation bilaterally Cardio: Rate: regular rate Rhythm: regular rhythm GI: Inspection: non-distended GI Palp: Yes Soft to palpation and Yes Tenderness to palpation present (GI) (mild ttp in epigastric, no rebound) Auscultation: normal bowel sounds Skin: General skin exam: normal color Neuro: General: gait normal Speech: normal speech Extrem: General: normal to inspection Psych: Mental Status: mental status grossly normal Objective Data Vital Signs Vital Signs: Vital Signs - 24 hr 07/19/20 20:00 07/19/20 21:59 07/20/20 05:42 Temperature 99.2 F 98.6 F Pulse Rate 68 68 70 Respiratory Rate 18 18 18 Blood Pressure 150/70 H 122/68 Pulse Oximetry 95 95 93 07/20/20 09:10 07/20/20 14:00 Temperature 98.5 F Pulse Rate 70 61 Respiratory Rate 20 Blood Pressure 155/81 H Pulse Oximetry 97 Intake/Output Intake/Output: Intake & Output 07/17/20 07/18/20 07/19/20 07/20/20 23:59 23:59 23:59 23:59 Intake Total 2100 2890 3660 2410 Output Total 1925 2550 600 Balance 2100 965 1110 1810 Meds/Results Medications: Active Medications Generic Name Dose Route Start Last Admin Trade Name Freq PRN Reason Stop Dose Admin Beclomethasone Dipropionate 2 puff 07/18/20 08:00 07/20/20 02:35 Beclomethasone Dip 80 Mcg 7.3 Gm Inhaler (*Sp) INHALATION Not Given Q12HRT [facility] Brimonidine Tartrate 1 drop 07/18/20 09:00 07/20/20 09:09 Brimonidine Tartrate 0.1% 5 Ml Ophth Drops EACH EYE 1 drop DAILY MARIA VICTORIA Administration Budesonide/Formoterol Fumarate 2 puff 07/18/20 08:00 07/20/20 09:07 Budesonide/Form 160-4.5 Mcg (*Sp) INHALATION 2 puff Q12HRT MARIA VICTORIA Administration Cholestyramine Resin 4 gm 07/18/20 13:00 07/20/20 16:54 Cholestyramine Light 4 Gm Powd.Pack PO 4 gm TID MARIA VICTORIA Administration Desmopressin Acetate 1 spray 07/17/20 23:45 Desmopressin Acetate 0.01% Nasal Soln 5 Ml Btl NASAL 08/16/20 23:46 PRN PRN BLOODY NOSE Diphenhydramine HCl 25 mg 07/17/20 23:32 07/18/20 00:45 Diphenhydramine Hcl Inj 50 Mg/Ml Vial IV PUSH 25 mg Q4H PRN Administration Itching Enoxaparin Sodium 40 mg 07/20/20 18:00 07/20/20 17:01 Enoxaparin 40 Mg/0.4 Ml Syringe SUB-Q 40 mg Q24H MARIA VICTORIA Administration Gabapentin 300 mg 07/18/20 13:00 07/20/20 16:54 Gabapentin 300 Mg Capsule PO 300 mg TID MARIA VICTORIA Administration Hydroxychloroquine Sulfate 200 mg 07/18/20 17:00 07/20/20 16:54 Hydroxychloroquine Sulfate 200 Mg Tablet PO 200 mg BID MARIA VICTORIA Administration Hyoscyamine 0.125 mg 07/19/20 09:00 07/20/20 09:09 Hyoscyamine Sulfate 0.125 Mg Tablet PO 0.125 mg DAILY MARIA VICTORIA Administration Hyoscyamine 0.125 mg 07/18/20 12:46 Hyoscyamine Sulfate 0.125 Mg Tablet PO Q4H PRN Abdominal Discomfort Sodium Chloride 1,000 mls @ 75 mls/hr 0
[2020-07-20] MEDS: MONTELUKAST SODIUM 10 MG TABLET PO (21:32)
[2020-07-20] MEDS: NORTRIPTYLINE HCL 10 MG CAPSULE 20 MG PO (21:32)
[2020-07-20] MEDS: LATANOPROST 0.005% OP SOLN 2.5 ML BTL 1 DROP EACH EYE (21:33)
[2020-07-20 21:45] VITALS: BP 151/83; PULSE 78; RESP 18; TEMP 36.6; O2SAT 92
[2020-07-21] MEDS: MORPHINE SULFATE (*CRX) 2 MG/ML INJ 4 MG IV PUSH ×2 (02:02→09:48)
[2020-07-21] MEDS: LORazepam INJ (*CRX) 2 MG/ML VIAL 0.5 MG IV PUSH (02:39)
[2020-07-21 05:43] VITALS: BP 142/74; PULSE 69; RESP 18; TEMP 36.1; O2SAT 93
[2020-07-21 06:49] LABS: Anion Gap 4 mmol/L (8-16); Blood Urea Nitrogen 6 mg/dL (7-17); Calcium 8.7 mg/dL (8.4-10.2); Carbon Dioxide 30 mmol/L (22-30); Chloride 106 mmol/L (98-107); Estimated CRCL calculation 48 ml/min; Estimated Glomerular Filt Rate > 60; Glucose 85 mg/dL (65-105); Magnesium 1.7 mg/dL (1.6-2.3); Potassium 3.9 mmol/L (3.4-5.0); Sodium 140 mmol/L (137-145)
[2020-07-21] MEDS: GABAPENTIN 300 MG CAPSULE PO ×3 (08:20→17:32)
[2020-07-21] MEDS: LOTEPREDNOL ETABONATE 0.5% OPH 5 ML BOTTLE 1 DROP EACH EYE ×2 (08:20→17:34)
[2020-07-21] MEDS: HYDROXYCHLOROQUINE SULFATE 200 MG TABLET PO ×2 (08:20→17:33)
[2020-07-21] MEDS: CHOLESTYRAMINE LIGHT 4 GM POWD.PACK PO ×3 (08:20→17:32)
[2020-07-21] MEDS: TIMOLOL MALEATE 0.25% OP SOLN 5 ML BOTTLE 1 DROP LEFT EYE (08:20)
[2020-07-21] MEDS: BRIMONIDINE TARTRATE 0.1% 5 ML OPHTH DROPS 1 DROP EACH EYE (08:20)
[2020-07-21 08:21] VITALS: PULSE 72
[2020-07-21] MEDS: HYOSCYAMINE SULFATE 0.125 MG TABLET PO (08:21)
[2020-07-21] MEDS: VENLAFAXINE HCL XR 75 MG CAP.ER.24H PO (08:21)
[2020-07-21] MEDS: NEBIVOLOL HCL 5 MG TABLET 10 MG PO (08:21)
--- NOTE | 2020-07-21 11:33 | PM.IMPN ---
Progress Note: A&P Assessment and Plan (1) Acute on chronic pancreatitis: Code(s): K85.90 - Acute pancreatitis without necrosis or infection, unspecified; K86.1 - Other chronic pancreatitis Status: Acute Assessment and Plan: Pt has a long hx of idiopathic chronic pancreatitis in which she has seen multiple doctors at [facility] and has had part of her pancreas and spleen removed. Reports this pain is similar to her pain she had in 2019 when she continued to have chronic pancreatitis. MRCP this stay shows chronic pancreatitis in tail of pancreas. Lipase WNL. GI consulted and appreciate recommendations. She does not drink alcohol and is s/p cholecystectomy; no evidence of retained stone. Pain slightly better today; hesitant to advance diet today. Will transition to PO Tylenol scheduled, Oxycodone 2.5 mg PO Q4 hr prn for severe pain, and morphine 2 mg IV Q4 hr prn for breakthrough pain Continue with GI recommendations; will defer advancing diet to GI as she is hesitant today Monitor (2) Kidney stone: Code(s): N20.0 - Calculus of kidney Status: Chronic Assessment and Plan: Kidney stones are nonobstructing. Appreciate Urology recommendations follow-up with urology in the office. She has a 1.5 cyst on her right kidney that will need to be followed as well. (3) Anxiety: Code(s): F41.9 - Anxiety disorder, unspecified Status: Chronic Assessment and Plan: Continue PRN medications (4) Neuropathy: Code(s): G62.9 - Polyneuropathy, unspecified Status: Chronic Assessment and Plan: Chronic (5) Rheumatoid arthritis: Code(s): M06.9 - Rheumatoid arthritis, unspecified Status: Acute Assessment and Plan: Chronic, no acute symptoms. 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 Patient states she feels somewhat better today. She is willing to taper her pain medications today. Hesitant on advancing diet just yet today, but understands to inform nursing or Dr. Bowen if she wishes to advance diet later. Pain still similar but less today. No N/V. Tolerating diet thus far. No other complaints. Denies f/c/s, dizziness, lightheadedness, cp/palpitations, sob/cough, changes in BMs, dysuria, calf pain/swelling. Review of Systems Review of Systems: All systems reviewed & are unremarkable except as noted in HPI and below Exam Narrative: Exam Narrative: General: Patient resting supine in bed with head raised in no acute distress. HEENT: Normocephalic, EOMI, oral mucosa moist. Cardiovascular: Rate and rhythm are regular. No notable murmur, rub, or gallop. Respiratory: Lungs clear to auscultation anterolateral lung medellin. Non-labored breathing. Abdomen: Soft, ttp epigastric, LUQ, and LLQ regions, non-distended, bowel sounds present. Extremities: Peripheral pulses intact. No edema. NTTP b/l calves Neuro: No focal neurological deficits. Speech is clear. Objective Data Vital Signs Vital Signs: Last Vital Signs Temp 97.0 F L 07/21/20 05:43 Pulse 72 07/21/20 08:21 Resp 18 07/21/20 05:43 BP 142/74 H 07/21/20 05:43 Pulse Ox 93 07/21/20 05:43 Intake/Output Intake/Output: Intake & Output 07/18/20 07/19/20 07/20/20 07/21/20 23:59 23:59 23:59 23:59 Intake Total 2
[2020-07-21] MEDS: ACETAMINOPHEN 325 MG TABLET 650 MG PO ×2 (12:26→17:33)
[2020-07-21 14:00] VITALS: BP 135/73; PULSE 68; RESP 16; TEMP 37.1; O2SAT 97
[2020-07-21] MEDS: oxyCODONE HCL (*CRX) 2.5 MG TAB IR PO (16:10)
[2020-07-21] MEDS: ENOXAPARIN 40 MG/0.4 ML SYRINGE SUB-Q (17:33)
--- NOTE | 2020-07-21 17:37 | WPDGIPROGNO ---
Progress Note: A&P Assessment and Plan (1) Acute on chronic pancreatitis: Code(s): K85.90 - Acute pancreatitis without necrosis or infection, unspecified; K86.1 - Other chronic pancreatitis Status: Acute Assessment and Plan: pain control, medical management advance diet as tolerated and recently transitioned to oral narcotics probably will need 1-2 more days before she can go home (2) Upper abdominal pain: Code(s): R10.10 - Upper abdominal pain, unspecified Status: Acute Assessment and Plan: from pancreatitis (3) Nausea and vomiting in adult: Code(s): R11.2 - Nausea with vomiting, unspecified Status: Acute Assessment and Plan: better, antiemetics prn Subjective Date/time seen: 07/21/20 17:37 Interval history: she had oatmeal and primary switched to oral pain meds, still with pain Review of Systems Review of Systems: All systems reviewed & are unremarkable except as noted in HPI and below Exam Const: General: comfortable and no acute distress HENMT: General nose exam: Normal nares present Eyes: General: appearance normal, both eyes and all related structures Neck: Neck: no JVD Resp: Auscultation: clear to auscultation bilaterally Cardio: Rate: regular rate Rhythm: regular rhythm GI: Inspection: non-distended GI Palp: Yes Soft to palpation and Yes Tenderness to palpation present (GI) (mild ttp in epigastric, no rebound) Auscultation: normal bowel sounds Skin: General skin exam: normal color Neuro: General: gait normal Speech: normal speech Extrem: General: normal to inspection Psych: Mental Status: mental status grossly normal Objective Data Vital Signs Vital Signs: Vital Signs - 24 hr 07/20/20 21:45 07/21/20 05:43 07/21/20 08:21 Temperature 97.8 F 97.0 F L Pulse Rate 78 69 72 Respiratory Rate 18 18 Blood Pressure 151/83 H 142/74 H Pulse Oximetry 92 93 07/21/20 14:00 Temperature 98.7 F Pulse Rate 68 Respiratory Rate 16 Blood Pressure 135/73 Pulse Oximetry 97 Intake/Output Intake/Output: Intake & Output 07/18/20 07/19/20 07/20/20 07/21/20 23:59 23:59 23:59 23:59 Intake Total 2890 3660 3930 1970 Output Total 1925 2550 2200 2750 Balance 965 1110 1730 -933 Meds/Results Medications: Active Medications Generic Name Dose Route Start Last Admin Trade Name Freq PRN Reason Stop Dose Admin Acetaminophen 650 mg 07/21/20 12:00 07/21/20 17:33 Acetaminophen 325 Mg Tablet PO 650 mg Q6H MARIA VICTORIA Administration Brimonidine Tartrate 1 drop 07/18/20 09:00 07/21/20 08:20 Brimonidine Tartrate 0.1% 5 Ml Ophth Drops EACH EYE 1 drop DAILY MARIA VICTORIA Administration Budesonide/Formoterol Fumarate 2 puff 07/18/20 08:00 07/21/20 08:17 Budesonide/Form 160-4.5 Mcg (*Sp) INHALATION 2 puff Q12HRT MARIA VICTORIA Administration Cholestyramine Resin 4 gm 07/18/20 13:00 07/21/20 17:32 Cholestyramine Light 4 Gm Powd.Pack PO 4 gm TID MARIA VICTORIA Administration Desmopressin Acetate 1 spray 07/17/20 23:45 Desmopressin Acetate 0.01% Nasal Soln 5 Ml Btl NASAL 08/16/20 23:46 PRN PRN BLOODY NOSE Diphenhydramine HCl 25 mg 07/17/20 23:32 07/18/20 00:45 Diphenhydramine Hcl Inj 50 Mg/Ml Vial IV PUSH 25 mg Q4H PRN Administration Itching Enoxaparin Sodium 40 mg 07/20/20 18:00 07/21/20 17:33 Enoxaparin 40 Mg/0.4 Ml Syringe SUB-Q 40 mg Q24H MARIA VICTORIA Administration Gabapentin 300 mg 07/18/20 13:00 07/21/20 17:32 Gabapentin 300 Mg Capsule PO 300 mg TID MARIA VICTORIA Administration Hydroxychloroquine Sulfate 200 mg 07/18/20 17:00 07/21/20 17:33 Hydroxychloroquine Sulfate 200 Mg Tablet PO 200 mg BID MARIA VICTORIA Administration Hyoscyamine 0.125 mg 07/19/20 09:00 07/21/20 08:21 Hyoscyamine Sulfate 0.125 Mg Tablet PO 0.125 mg DAILY MARIA VICTORIA Administration Hyoscyamine 0.125 mg 07/18/20 12:46 Hyoscyamine Sulfate 0.125 Mg Tablet PO Q4H PRN Abdominal Discomfort Sodium Chlorid
[2020-07-21 20:00] VITALS: PULSE 67; RESP 18; O2SAT 93
[2020-07-21] MEDS: NORTRIPTYLINE HCL 10 MG CAPSULE 20 MG PO (20:25)
[2020-07-21] MEDS: MONTELUKAST SODIUM 10 MG TABLET PO (20:26)
[2020-07-21] MEDS: LATANOPROST 0.005% OP SOLN 2.5 ML BTL 1 DROP EACH EYE (20:27)
[2020-07-21] MEDS: MORPHINE SULFATE (*CRX) 2 MG/ML INJ IV PUSH (20:28)
[2020-07-21 22:00] VITALS: BP 141/77; PULSE 67; RESP 18; TEMP 36.4; O2SAT 93
[2020-07-22] MEDS: MORPHINE SULFATE (*CRX) 2 MG/ML INJ IV PUSH (01:20)
[2020-07-22] MEDS: ACETAMINOPHEN 325 MG TABLET 650 MG PO ×3 (01:22→11:31)
[2020-07-22 05:46] VITALS: BP 144/69; PULSE 68; RESP 16; TEMP 36.2; O2SAT 98
[2020-07-22 06:33] LABS: Hematocrit 30.1 % (37.0-47.0); Hemoglobin 9.8 g/dL (12.0-15.0); Mean Corpuscular HGB Conc 32.6 g/dl (32-36); Mean Corpuscular Hemoglobin 31.6 pg (26-34); Mean Corpuscular Volume 97.1 fl (80-100); Mean Platelet Volume 11.3 fl (7.4-10.4); Platelet Count Result 278 k/mm3 (150-375); Red Cell Distribution Width 15.4 % (11.5-14.5); White Blood Count 6.7 K/mm3 (4.5-10.0)
[2020-07-22 06:44] LABS: Anion Gap 2 mmol/L (8-16); Blood Urea Nitrogen 6 mg/dL (7-17); Calcium 8.4 mg/dL (8.4-10.2); Carbon Dioxide 31 mmol/L (22-30); Chloride 107 mmol/L (98-107); Estimated CRCL calculation 48 ml/min; Estimated Glomerular Filt Rate > 60; Glucose 80 mg/dL (65-105); Magnesium 1.6 mg/dL (1.6-2.3); Potassium 3.8 mmol/L (3.4-5.0); Sodium 140 mmol/L (137-145)
[2020-07-22 08:00] VITALS: PULSE 74; RESP 16; O2SAT 98
[2020-07-22] MEDS: oxyCODONE HCL (*CRX) 2.5 MG TAB IR PO (08:30)
[2020-07-22] MEDS: GABAPENTIN 300 MG CAPSULE PO (08:31)
[2020-07-22] MEDS: CHOLESTYRAMINE LIGHT 4 GM POWD.PACK PO ×2 (08:31→13:20)
[2020-07-22] MEDS: BRIMONIDINE TARTRATE 0.1% 5 ML OPHTH DROPS 1 DROP EACH EYE (08:31)
[2020-07-22 08:32] VITALS: PULSE 74
[2020-07-22] MEDS: VENLAFAXINE HCL XR 75 MG CAP.ER.24H PO (08:32)
[2020-07-22] MEDS: LOTEPREDNOL ETABONATE 0.5% OPH 5 ML BOTTLE 1 DROP EACH EYE (08:32)
[2020-07-22] MEDS: NEBIVOLOL HCL 5 MG TABLET 10 MG PO (08:32)
[2020-07-22] MEDS: HYOSCYAMINE SULFATE 0.125 MG TABLET PO (08:32)
[2020-07-22] MEDS: TIMOLOL MALEATE 0.25% OP SOLN 5 ML BOTTLE 1 DROP LEFT EYE (08:33)
[2020-07-22] MEDS: HYDROXYCHLOROQUINE SULFATE 200 MG TABLET PO (08:33)
--- NOTE | 2020-07-22 12:14 | PM.DS ---
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 Reports this pain is similar to her pain she had in 2019 when she continued to have chronic pancreatitis. MRCP this stay shows chronic pancreatitis in tail of pancreas. Lipase WNL. GI consulted and appreciate recommendations. She does not drink alcohol and is s/p cholecystectomy; no evidence of retained stone. Pain much better today. She wishes to advance to a low fat diet today; comfortable with discharge if tolerating diet. D/c today if tolerating Low fat diet Pain control with tylenol as needed; home pain meds only as needed for severe pain. She knows to wean off pain medication as soon as tolerated Appreciate GI recommendations F/u with established GI specialist at [facility] F/u with PCP Low fat diet (2) Kidney stone: Code(s): N20.0 - Calculus of kidney Status: Chronic Assessment and Plan: Kidney stones are nonobstructing. Appreciate Urology recommendations follow-up with urology in the office. She has a 1.5 cyst on her right kidney that will need to be followed as well. (3) Anxiety: Code(s): F41.9 - Anxiety disorder, unspecified Status: Chronic Assessment and Plan: Continue PRN medications (4) Neuropathy: Code(s): G62.9 - Polyneuropathy, unspecified Status: Chronic Assessment and Plan: Chronic (5) Rheumatoid arthritis: Code(s): M06.9 - Rheumatoid arthritis, unspecified Status: Acute Assessment and Plan: Chronic, no acute symptoms. 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 While in the ED, lipase, WBC, and UA were normal. Ct abd/pelvis showed ventral hernia containing nonobstructed small bowel, nonobstructing kidney stones, and fat stranding around the pancreas suspicious for acute or chronic pancreatitis. Patient was hydrated with IV fluids in the ED. Pain was persistent despite IV pain medications. Patient admitted to the hospitalist service under this setting for further management/treatment. Please see H&P for further details. After admission, Patient was placed on NPO status. Given suspicious findings of possible pancreatitis, patient was made NPO. Dr. Bowen (GI) was consulted. MRCP performed showed mild enlargement of the tail of the pancreas, consistent with chronic pancreatitis. She was given IV narcotics which were eventually weaned to PO pain meds after bowel rest. Diet was slowly advanced. Urology was consulted for renal stones and plans were for outpatient follow up; no intervention at this time. Patient was eventually advanced to a low fat diet which she tolerated well. She was instructed to follow up with her GI speci
== END 2020-07-22 14:05 | disposition home or self-care (01) | DRG 440 ==
LOC: ANHED 18:50 → ANH3MEDSUR 21:19
PROVIDERS: Emergency Medicine; Nurse Practitioner; Physician Assistant; Admitting Provider Internal Medicine; Emergency Provider Emergency Medicine; PCP Family Medicine; Visit Provider Internal Medicine
DX: K85.90 Acute pancreatitis without necrosis or infection, unspecified (principal); K86.1 Other chronic pancreatitis; F41.9 Anxiety disorder, unspecified; N20.0 Calculus of kidney; M06.9 Rheumatoid arthritis, unspecified; K85.00 Idiopathic acute pancreatitis without necrosis or infection; D64.9 Anemia, unspecified; G62.9 Polyneuropathy, unspecified
CPT/HCPCS: 36415; 74176; 74183; 76376; 80048; 80053; 80076; 81003; 83605; 83615; 83690; 83735; 84443; 85025; 85027; 85610; 85730; 96361; 96365; 96366; 96375; 96376; 99285; A9270; A9577; G0378; J0131; J1200; J1650; J2060; J2270; J2405; J7030

== ENCOUNTER 2021-06-11 10:04 | Outpatient (CLI) | payer BC, SELFPAY ==
[2021-06-11 11:10] LABS: Hematocrit 36.2 % (37.0-47.0)
[2021-06-11 11:18] LABS: INR 0.9; Prothrombin Time 12.2 Seconds (11.1-14.7)
[2021-06-11 11:19] LABS: Anion Gap 9 mmol/L (8-16); Blood Urea Nitrogen 15 mg/dL (7-17); Calcium 8.7 mg/dL (8.4-10.2); Carbon Dioxide 24 mmol/L (22-30); Chloride 106 mmol/L (98-107); Estimated Glomerular Filt Rate > 60; Glucose 91 mg/dL (65-110); Partial Thromboplastin Time 27.7 SECONDS (22.3-36.8); Potassium 3.8 mmol/L (3.4-5.0); Sodium 139 mmol/L (137-145)
== END 2021-06-11 10:05 | disposition home or self-care (01) ==
LOC: ANHSURGERY 10:11
PROVIDERS: Anesthesiology; PCP Family Medicine; Visit Provider Urology
DX: N39.3 Stress incontinence (female) (male) (principal); D64.9 Anemia, unspecified; N28.9 Disorder of kidney and ureter, unspecified
CPT/HCPCS: 36415; 80048; 85014; 85018; 85610; 85730; 87086; 87088

== ENCOUNTER 2021-06-15 00:54 | Day surgery (SDC) | payer BC, SELFPAY ==
[2021-06-01 14:00] VITALS: BMI 25.6
--- NOTE | 2021-06-01 14:26 | PC.NURSE ---
Report to the Outpatient Waiting Room, entrance under the green pavilion located off [facility], at time _0915_ on date _06/15/21_. OR Time: _1115_. - You will be asked a series of questions to screen for COVID 19 for your protection. - A mask is required within the hospital. - No visitors are allowed at this time. Preoperative COVID Testing Requirements: NONE Patients may have clear liquids (water, carbonated beverages, clear teas, apple juice) until 3 hours prior to surgery (0815 AM) with a maximum of 20 ounces. - No food from midnight until time of surgery Take the following medications with a SIP of water the morning of surgery: _CLONAZEPAM, GABAPENTIN, NEBIVOLOL, EYE DROPS, PAIN MEDS__ Medications to discontinue per ANESTHESIA - _ALL VITAMINS AND SUPPLEMENTS 3 DAYS PRIOR TO SURGERY LAST DOSE TO BE TAKEN ON 06/11/21__ Please no make-up, nail arabic, hairspray, perfume, deodorant, or body powder the day of surgery. No jewelry (including any body piercings) or valuables the day of surgery, leave them at home. Please take a shower or bath the night before, or the morning of, surgery with an antibacterial soap. Wear comfortable, loose fitting clothing. - Jewelry must be removed prior to entering the operating room. Rings and piercings that are not removed may be cut off. - The hospital will not accept responsibility for valuables. - Please leave all valuables, including medications, at home the day of surgery. If you are going home after surgery, a licensed taxicab driver must drive you home. - NO public transportation without another adult. - We recommend that an adult stay with you for 24 hours following discharge. - We also recommend that you do not drive, make important decision, drink alcoholic beverages, or take any drugs that were not prescribed by your health care provider for at least 24 hours after your discharge time. Follow any additional instructions given to you from your surgeon. Telephone instructions given to PT and asked if any additional questions and then verbalized understanding. Patient advised to call surgeon office or pre surgery nurse liaTIMOTHY miranda [phone] if any additional questions.
--- NOTE | 2021-06-10 19:29 | PM.IMHP ---
H&P: HPI History of Present Illness Date/Time: 06/10/21 19:29 65 yo with ISD Chief Complaint: ISD PMFSH Past Medical History Medical History Anxiety Chronic anemia History of asthma History of gastroesophageal reflux (GERD) History of migraine headaches Kidney stone Nausea and vomiting in adult Neuropathy Rheumatoid arthritis Upper abdominal pain Surgical History Surgical History H/O hysterectomy with oophorectomy H/O splenectomy History of bladder surgery History of ERCP Hx of elbow surgery Hx of lithotripsy Total knee replacement status Bilaterally Family History Family History Mother Diabetes mellitus Cancer Hypertension Colon cancer Ulcerative colitis Migraines Cerebrovascular accident Father Diabetes mellitus Hypertension Sibling Diabetes mellitus Hypertension Sibling Diabetes mellitus Hypertension Lung disease Social History Social History Social History: The patient is and her is in a wheelchair. She has 1 adopted daughter.the and the adopted daughter are the durable power city attorney for healthcare. The patient has full code. 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 She denies any alcohol, marijuana or illicit drugs. She states she is a lifelong nonsmoker Smoking status: Never smoker Second hand tobacco smoke exposure: Yes Alcohol intake: never Substance use: never Substance use type: does not use Spiritual care concerns: No Meds Home Medications and Allergies Home Medications Medication Instructions Recorded Confirmed Type Alphagan P 1 drp EACH EYE DAILY 07/17/20 06/01/21 History ICaps AREDS2 1 cap PO BID 07/17/20 06/01/21 History Qvar RediHaler 2 inh INHALATION BID 07/17/20 06/01/21 History Simponi ARIA 125 mg IV ONCE 07/17/20 06/01/21 History Xiidra 1 drp EACH EYE BID 07/17/20 06/01/21 History alcaftadine 1 drp EACH EYE QID PRN 07/17/20 06/01/21 History biotin 1 mg PO DAILY 07/17/20 06/01/21 History budesonide-formoterol 2 puff INHALATION BID 07/17/20 06/01/21 History cetirizine 10 mg PO DAILY 07/17/20 06/01/21 History cholecalciferol (vitamin D3) 50 mcg PO DAILY 07/17/20 06/01/21 History cholestyramine-aspartame 4 g PO TID 07/17/20 06/01/21 History clonazepam 0.5 mg PO DAILY PRN 07/17/20 06/01/21 History clonazepam 0.5 mg PO HS 07/17/20 06/01/21 History coenzyme Q10 200 mg PO DAILY 07/17/20 06/01/21 History cyanocobalamin (vitamin B-12) 1,000 mcg PO DAILY 07/17/20 06/01/21 History desmopressin 1 spray INTRANASAL PRN 07/17/20 06/01/21 History diphenoxylate-atropine 2 tablet PO QID 07/17/20 06/01/21 History epinephrine 0.3 mg IM PRN PRN 07/17/20 06/01/21 History esomeprazole magnesium 40 mg PO DAILY 07/17/20 06/01/21 History ferrous sulfate 325 mg PO QNOON 07/17/20 06/01/21 History folic acid 1 mg PO DAILY 07/17/20 06/01/21 History gabapentin 300 mg PO TID 07/17/20 06/01/21 History hydroxychloroquine 200 mg PO BID 07/17/20 06/01/21 History hyoscyamine sulfate 0.125 mg PO DAILY 07/17/20 06/01/21 History hyoscyamine sulfate 0.125 mg PO Q4H PRN 07/17/20 06/01/21 History levalbuterol HCl 1.25 mg INHALATION Q4H PRN 07/17/20 06/01/21 History levalbuterol tartrate 4 puff INHALATION Q4H PRN 07/17/20 06/01/21 History [id number]-[id number]-[id number] 4 cap PO TID 07/17/20 06/01/21 History loteprednol etabonate [Lotemax] 1 drp EACH EYE BID 07/17/20 06/01/21 History methotrexate sodium 20 mg PO WEEKLY 07/17/20 06/01/21 History montelukast 10 mg PO HS 07/17/20 06/01/21 History nebivolol [Bystolic] 10 mg PO DAILY 07/17/20 06/01/21 History nortriptyline 20 mg PO HS 07/17/20 06/01/21 History ondansetron HCl [Zofran] 4 mg PO Q8H PRN 07/17/20 06/01/21 History oxycodone-acetaminophen 1 tablet PO PRN PRN 07/17/20 06/01/21 History rizatriptan 10 mg P
--- NOTE | 2021-06-15 07:08 | WPDHPUPDATE1 ---
History and Physical Update Update Date/Time: 06/15/21 07:08 History and Physical has been reviewed, including an updated exam of the patient. There are NO changes in the patient's condition. Risks, benefits, and alternatives have been discussed and questions answered. Patient agrees to proceed with procedure.
[2021-06-15 09:59] VITALS: BP 116/70; PULSE 66; RESP 16; TEMP 36.4; O2SAT 99; BMI 26.6
--- NOTE | 2021-06-15 10:09 | WPDANESEPPF ---
Anes - Initial Pre Proc Eval Procedure: Operation Date: 06/15/21 11:15 Proposed Procedures p Cystoscopy with Injection Bulking Agent - Forest Torres MD Date/Time: 06/15/21 10:09 Surgeon: Forest Torres MD Pre Op Diagnosis: stress incont, ISD Patient Data Age: 65 Gender: F Height: 1.57 m Weight: 66 kg Last Vital Signs Temp 36.4 C 06/15/21 09:59 Pulse 66 06/15/21 09:59 Resp 16 06/15/21 09:59 BP 116/70 06/15/21 09:59 Pulse Ox 99 06/15/21 09:59 Allergies Allergy/AdvReac Type Severity Reaction Status Date / Time chlorhexidine Allergy Intermediate Hives Verified 06/15/21 10:10 banana Allergy Rash Verified 06/15/21 10:10 bee venom protein (honey bee) Allergy Anaphylaxis Verified 06/15/21 10:10 cat dander Allergy Rash Verified 06/15/21 10:10 cefdinir Allergy Rash Verified 06/15/21 10:10 codeine Allergy Anaphylaxis Verified 06/15/21 10:10 dog dander Allergy Rash Verified 06/15/21 10:10 hydromorphone [From Dilaudid] Allergy Difficulty Verified 06/15/21 10:10 Breathing Iodine and Iodide Containing Allergy Hives Verified 06/15/21 10:10 Produc Latex, Natural Rubber Allergy Hives Verified 06/15/21 10:10 levofloxacin Allergy Rash Verified 06/01/21 13:57 pineapple Allergy Rash Verified 06/01/21 13:57 shellfish derived Allergy Anaphylaxis Verified 06/15/21 10:10 strawberry Allergy Rash Verified 06/15/21 10:10 Sulfa (Sulfonamide Allergy Hives Verified 06/15/21 10:10 Antibiotics) sulfanilamide Allergy Rash Verified 06/15/21 10:10 aspirin AdvReac Other Verified 06/15/21 10:10 gluten AdvReac Diarrhea Verified 06/15/21 10:10 hydrocodone AdvReac Nausea Verified 06/15/21 10:10 lactose AdvReac Diarrhea Verified 06/15/21 10:10 Home Medications Medication Instructions Recorded Confirmed Type Alphagan P 1 drp EACH EYE DAILY 07/17/20 06/01/21 History ICaps AREDS2 1 cap PO BID 07/17/20 06/15/21 History Qvar RediHaler 2 inh INHALATION BID 07/17/20 06/01/21 History Simponi ARIA 125 mg IV ONCE 07/17/20 06/01/21 History Xiidra 1 drp EACH EYE BID 07/17/20 06/01/21 History alcaftadine 1 drp EACH EYE QID PRN 07/17/20 06/01/21 History biotin 1 mg PO DAILY 07/17/20 06/15/21 History budesonide-formoterol 2 puff INHALATION BID 07/17/20 06/01/21 History cetirizine 10 mg PO DAILY 07/17/20 06/01/21 History cholecalciferol (vitamin D3) 50 mcg PO DAILY 07/17/20 06/15/21 History cholestyramine-aspartame 4 g PO TID 07/17/20 06/01/21 History clonazepam 0.5 mg PO DAILY PRN 07/17/20 06/01/21 History clonazepam 0.5 mg PO HS 07/17/20 06/01/21 History coenzyme Q10 200 mg PO DAILY 07/17/20 06/15/21 History cyanocobalamin (vitamin B-12) 1,000 mcg PO DAILY 07/17/20 06/15/21 History desmopressin 1 spray INTRANASAL PRN 07/17/20 06/01/21 History diphenoxylate-atropine 2 tablet PO QID 07/17/20 06/01/21 History epinephrine 0.3 mg IM PRN PRN 07/17/20 06/01/21 History esomeprazole magnesium 40 mg PO DAILY 07/17/20 06/01/21 History ferrous sulfate 325 mg PO QNOON 07/17/20 06/15/21 History folic acid 1 mg PO DAILY 07/17/20 06/15/21 History gabapentin 300 mg PO TID 07/17/20 06/01/21 History hydroxychloroquine 200 mg PO BID 07/17/20 06/01/21 History hyoscyamine sulfate 0.125 mg PO DAILY 07/17/20 06/01/21 History hyoscyamine sulfate 0.125 mg PO Q4H PRN 07/17/20 06/01/21 History levalbuterol HCl 1.25 mg INHALATION Q4H PRN 07/17/20 06/01/21 History levalbuterol tartrate 4 puff INHALATION Q4H PRN 07/17/20 06/01/21 History [id number] 4 cap PO TID 07/17/20 06/01/21 History loteprednol etabonate [Lotemax] 1 drp EACH EYE BID 07/17/20 06/01/21 History methotrexate sodium 20 mg PO WEEKLY 07/17/20 06/01/21 History montelukast 10 mg PO HS 07/17/20 06/01/21 History nebivolol [Bystolic] 10 mg PO DAILY 07/17/20 06/15/21 History nortriptyline 20 mg PO HS 07/17/20 06/01/21 History ondansetron HCl [Zofran] 4 mg PO Q8H PRN 07/17/20 06/01/21 History oxycodone-acetaminophen 1 tablet PO PRN PRN 07/17/20 06/01/21 History rizatriptan
[2021-06-15] MEDS: LACTATED RINGERS 1,000 ML 30 ML IV CONT (10:26)
--- NOTE | 2021-06-15 10:45 | SUR.PREOP ---
1015; PT ANXIOUS, COMFORTED HER. PT ON CRUTCHES. STATES NWB ON RT FOOT.
[2021-06-15] MEDS: ceFAZolin 2 GM/D5W 50 ML 2 GM/50 ML BAG IVPB (11:11)
[2021-06-15 11:40] VITALS: BP 85/38; PULSE 64; RESP 19; O2SAT 97
--- NOTE | 2021-06-15 11:45 | W.PM.PROC2 ---
Procedure Note - Detailed Date of Procedure 06/15/21 Pre-op Diagnosis Intrinsic sphincter deficiency Post-op Diagnosis same Procedure Performed Cystoscopy with suburethral injection of implant material [id number] Surgeon Forest Torres MD Anesthesia MAC Indications This is a woman with incontinence. She has urge incontinence and intrinsic sphincter deficiency. We are making a repeat attempted a bulking agent. She understands risks of bleeding, infection, urinary retention requiring catheterization, lack of efficacy, need for repeat procedures. She agrees to proceed Findings Nonmobile urethra. Significant atrophic vaginitis. Sure urethral length Description of Procedure She has correctly identified. Informed consent obtained. From the operating room. She was given MAC anesthesia. She was prepped and draped in a sterile fashion. Time-out performed. Examination revealed significant atrophic vaginitis. She has a fixed nonmobile urethra. I performed cystoscopy. She has a moderately trabeculated bladder with an almost Bakari tree appearance. Ureteral orifices were normal. She has no known history of neurogenic bladder. Urethra is open consistent with intrinsic sphincter deficiency. I injected bulking agent circumferentially around the urethra. I used 2 syringes total. She has a very short urethra. It was very difficult for the tissues to take the bulking agent but I did receive bulking effect. I left her bladder full. She was awakened and transferred to PACU in stable condition Implants Bulking agent Estimated Blood Loss 1 Drains No Packing No Pathology none sent Complications No immediate complications Condition stable Disposition PACU
[2021-06-15] MEDS: fentaNYL CITRATE INJ (*CRX) 100 MCG/2 ML VIAL 25 MCG IV PUSH ×2 (12:02→12:05)
[2021-06-15 12:10] VITALS: BP 104/62; PULSE 58; O2SAT 97
[2021-06-15 12:40] VITALS: BP 120/68; PULSE 63
[2021-06-15] MEDS: oxyCODONE HCL (*CRX) 5 MG TAB IR PO (12:49)
[2021-06-15 13:00] VITALS: BP 98/75; PULSE 68
--- NOTE | 2021-06-15 15:46 | SUR.PHASEII ---
Patient unhooked from monitors at 1310 and waiting for ride. Vital signs were stable.
== END 2021-06-15 13:40 | disposition home or self-care (01) ==
PROVIDERS: PCP Family Medicine; Visit Provider Urology
PROC: 3E0K8GC Introduction of Other Therapeutic Substance into Genitourinary Tract, Via Natural or Artificial Opening Endoscopic (ICD-10-PCS; CPT 51715; principal; 2021-06-15 11:15)
DX: N36.42 Intrinsic sphincter deficiency (ISD) (principal); N95.2 Postmenopausal atrophic vaginitis; N39.41 Urge incontinence; F41.9 Anxiety disorder, unspecified; J45.909 Unspecified asthma, uncomplicated; K21.9 Gastro-esophageal reflux disease without esophagitis; D64.9 Anemia, unspecified; M06.9 Rheumatoid arthritis, unspecified; G62.9 Polyneuropathy, unspecified
CPT/HCPCS: 51715; A9270; J0690; J2704; J3010; J7120; L8606